=== PATIENT | female | born 1995 | race Caucasian/White ===

== ENCOUNTER 2018-08-27 20:56 | Emergency (ER) | payer MEDICAID ==
[~2018-08-27] VITALS: Ht 152.4 cm; Wt 43.5 kg
[2018-08-27 21:09] VITALS: Ht 152.4 cm; Wt 43.5 kg
[2018-08-27 21:55] VITALS: BP 135/81
== END 2018-08-27 21:55 | disposition home or self-care (01) ==
LOC: ED 20:56
DX: T16.1XXA Foreign body in right ear, initial encounter (principal); Z88.0 Allergy status to penicillin; X58.XXXA Exposure to other specified factors, initial encounter; Y93.89 Activity, other specified; Y92.89 Other specified places as the place of occurrence of the external cause; Y99.8 Other external cause status